=== PATIENT | male | born 1990 | race Caucasian/White ===

== ENCOUNTER 2021-08-11 10:13 | Inpatient (IN) | payer BC, SELFPAY ==
[2021-08-11] VITALS (9 sets, daily range): BP systolic 103–126; BP diastolic 62–82; PULSE 71–97; RESP 16–20; TEMP 36.3–37.1; O2SAT 96–98; BMI 22.8; BMI 21.7
--- NOTE | 2021-08-11 10:19 | EKG12_ITS ---
Test Reason : CP Blood Pressure : / mmHG Vent. Rate : 095 BPM Atrial Rate : 095 BPM P-R Int : 194 ms QRS Dur : 108 ms QT Int : 348 ms P-R-T Axes : 063 077 063 degrees QTc Int : 437 ms Normal sinus rhythm Normal ECG Confirmed by JOSE ELIAS ORNELAS, MICHAEL ([id number]), art editor YENNIFER AVENDANO ([id number]) on 08/15/2021 1:12:23 PM Referred By: RU Confirmed By:MICHAEL MOCTEZUMA MD
--- NOTE | 2021-08-11 10:27 | RAD_ITS ---
We are attempting to reach an attending provider to discuss findings. An addendum with communication details will be sent when the communication is complete. HISTORY: chest pain. TECHNIQUE: XR Chest 2 Views. # of images incl. paperwork: 2. COMPARISON: None. FINDINGS: CARDIOMEDIASTINAL STRUCTURES: Cardiac silhouette and mediastinal contour not enlarged. Mild rightward mediastinal shift. LUNGS: Collapse of the left lung. PLEURA: Large left pneumothorax. Mild depression of the left hemidiaphragm. OSSEOUS STRUCTURES: Unremarkable. RAD/Chest PA and Lateral IMPRESSION: Large left tension pneumothorax. Collapse of the left lung. at 1053 Reported and signed by: Юлия Garcia MD Electronically Signed: Юлия Garcia MD at 10:52 EST ,
--- NOTE | 2021-08-11 10:28 | ED.VIS.CHEST ---
HPI History of Present Illness Chief Complaint: Chest Pain Informant: patient Onset/Context/Timing Onset: Days Activity at onset: gradual Timing: Continuous Quality: Positive for Aching Location: Left Chest Current Severity: Mild Maximum Severity: Mild Worsened By: Movement of Torso Relieved By: Remaining Still Associated Symptoms: Positive for Dyspnea; Negative for Nausea, Vomiting, Diaphoresis, Cough, Fever, Lightheadedness, Acid Reflux and Palpitations Narrative Narrative: 30-year-old male no sniffing past medical history. States that yesterday morning he awoke with left-sided chest discomfort. He describes as an aching on his left lateral chest. The pain did not make him wake up. He says he had some mild shortness of breath with it and with walking. He denies any chest wall trauma. He has never had a DVT or PE. He has had no hemoptysis. No leg pain or swelling. No risk factors for DVT or PE. Has had no recent travel, surgery, immobilization. There is no family history of blood clots. His dad did have an [place] at 50. Patient is never had a pneumothorax. He denies any fever, cough or abdominal pain. Patient was seen in urgent care earlier today. Had a normal EKG and they wanted him to get further evaluation and sent him to the emergency department. Prior Similar Symptoms: No Recent Illness/Hospitalization: No CVD Risk Factors: Positive for Family History 1' </=55; Negative for Hypertension, Diabetes, Hypercholesterolemia and Smoking PE Risk Factors: Negative for Recent Travel/Surgery, Recent Immobilization, Prior DVT or PE, Cancer and OCP + Smoking + >/=35 TAD Risk Factors: Negative for Marfan's Syndrome and Hypertension PFSH PFSH Medical History no medical history no medical history Home Medications NK 08/11/21 [History Last Taken Unknown] Allergy/AdvReac Type Severity Reaction Status Date / Time No Known Allergies Allergy Verified 08/11/21 10:31 Social History Smoking Status: Current every day smoker tobacco type: cigarettes ROS ROS ED ROS Narrative Left chest pain. Dyspnea. Review of Systems ROS Unobtainable: Denies due to encephalopathy Constitutional Constitutional ED: Denies fever(s) Eyes Eyes: Denies none ENT ENT ED: Denies ear pain Cardiovascular Cardiovascular: Reports as per HPI and chest pain; Denies palpitations or racing heartbeat Respiratory/Chest Respiratory/Chest: Reports dyspnea; Denies cough or sputum Gastrointestinal Gastrointestinal: Denies abdominal pain, diarrhea, nausea or vomiting Genitourinary Genitourinary ED: Denies dysuria Musculoskeletal Musculoskeletal: Denies myalgias Integumentary Denies rash Neurologic Neurologic: Denies headache(s) Psychiatric Psychiatric: Denies depression Endocrine Endocrinology: Denies polyuria Hematologic/Lymphatic Hematologic/Lymphatic: Denies easy bruising Allergic/Immunologic Allergic/Immunologic ED: Denies urticaria EXAM Physical Exam Narrative Exam Narrative: 30-year-old male no acute distress. Vital signs are stable and he is afebrile. His pulse ox is 97% on room air is no hypoxia. Pulse 77. Blood pressure 103/65. He is a well-appearing male. H EENT exam unremarkable. Neck nontender. No JVD. No lymphadenopathy. Lungs clear to auscultation bilaterally. Heart regular rhythm rate about 80 no murmur. Chest wall completely nontender. No signs of trauma. No ecchymosis or bruising. No subcu air or crepitance. No reproducible chest wall pain. Abdomen soft nontender normal bowel sounds no peritoneal signs. Patient moving all 4 extremities. Calves are nontender without edema or cords. Radial pulses are equal and symmetrical. Back is nontender. Neurologically the patient is awake and alert. He has no focal motor deficits. Exam is normal. Const Vital Signs: 08/11/21 10:13 08/11/21 10:32 08/11/21 10:35 Temperature 97.3 F L Temperature Source Temporal Pulse Rate 77 Respiratory Rate 18 Respiratory Effort Normal Non-Labored Respiratory Pattern Normal Blood Pressure 103/65 Blood Pressure Mean 77 Pulse Ox 97 Oxygen Delivery Method Room Air Room Air 08/11/21 12:13 Temperature Temperature Source Pulse Rate 97 Respiratory Rate 16 Respiratory Effort Respiratory Pattern Blood Pressure 117/82 H Blood Pressure Mean 93 Pulse Ox 96 Oxygen Delivery Method Room Air Positive well nourished and well developed; Negative for obese, cachectic, contractures or unkempt General Appearance ED: well developed and NAD; Negative for unkempt, cachectic, contractures or pallor Nutritional Appearance: Negative for cachectic or obese HEENT Reports moist mucous membranes normocephalic and atraumatic; Negative for trauma or tenderness Eyes PERRL and EOMs intact bilaterally General Eye ED: Negative for pale conjunctiva or scleral icterus Neck no lymphadenopathy, supple and no JVD General: Negative for tenderness Chest Wall inspection of chest normal and palpation of chest normal Chest: Negative for tenderness Resp normal respiratory effort and clear to auscultation bilaterally Effort and Inspection: respiratory distress Auscultation: Negative for rales, rhonchi or wheezes Cardio regular rate, S1 normal heart sound, S2 normal heart sound and no murmurs Rate: Negative for bradycardia or tachycardic Rhythm: Negative for abnormal rhythm Peripheral Pulses: Negative for pulses 2+ throughout GI normal to inspection, nondistended, normoactive bowel sounds, soft to palpation, non-tender, non-distended and no masses; Negative for hepatosplenomegaly Auscultation: Negative for hyperactive bowel sounds Palpation: Negative for splenomegaly or mass Back/Spine no CVA tenderness Extremity normal to inspection General Extremety ED: Negative for edema, pulses abnormal or tenderness General Extremity: Negative for edema or pulses abnormal Neuro oriented x3 and CN's II-XII intact bilaterally Sensorium / Orientation: awake, alert, oriented to person and oriented to place Motor Exam: strength 5/5 throughout Psych mental status grossly normal Appearance: Negative for unkempt Mood & Affect: Negative for depressed or tearful Skin no rashes or lesions noted and no wounds General Skin Exam: Negative for jaundice or pallor Heart Score History: Slightly/Non-Suspicious ECG: Normal Age: </= 45 years Risk Factors: No Risk Factors Troponin: </= Normal Limit Score: 0 MDM MDM MDM Narrative Medical decision making narrative: 30-year-old male with left-sided atypical, nonreproducible chest pain. He is in very good health. He is in very good shape. He has no risk factors for DVT or PE. There is no family history of clotting disorders. He has no cardiac risk factors himself. His dad did have an [place] at 50 and . Undergo cardiac work-up. Will be given morphine and Zofran for pain. Patient chest x-ray revealed a large left pneumothorax. Patient was given morphine and Zofran for pain. He was removed to room to we discussed treatment options. I also spoke to the general surgeon on-call and structural metal fabricator apprentice. I placed a Heimlich valve on his left lateral chest wall. Patient did well. On post Heimlich valve placement the lung was reexpanded on the left. Patient is doing well with stable vital signs. Resting comfortably. Lab Data Attestation: I reviewed the patient's lab results. Lab results narrative: CBC white count of 12. H&H is 16 and 45. Electrolytes unremarkable gap of 5 normal BUN and creatinine. Troponin 4. D-dimer is elevated 0.64. Chest x-ray shows a large left-sided pneumothorax. Labs: Laboratory Results - last 24 hr 08/11/21 08/11/21 08/11/21 10:30 10:30 10:30 WBC 12.4 H RBC 5.25 Hgb 16.2 Hct 45.9 MCV 87.4 MCH 30.9 MCHC 35.3 RDW Std Deviation 41.9 RDW Coeff of Austyn 13.1 Plt Count 298 MPV 9.4 Immature Gran % (Auto) 0.300 Neut % (Auto) 66.3 Lymph % (Auto) 23.0 Spink % (Auto) 6.6 Eos % (Auto) 3.2 Baso % (Auto) 0.6 Absolute Neuts (auto) 8.2 H Absolute Lymphs (auto) 2.85 Nucleated RBC % 0 D-Dimer Quant (PE/DVT) 0.64 H* Sodium 140 Potassium 3.9 Chloride 109 H Carbon Dioxide 26.0 Anion Gap 5 BUN 8 Creatinine 1.07 Estim Creat Clear Calc 108.09 Est GFR (MDRD) Af Amer 103 Est GFR (MDRD) Non-Af 85 BUN/Creatinine Ratio 7.5 L Glucose 100 Calcium 9.3 Troponin I High Sens 4 Radiography Chest X-Ray - ED: 2 View, Read by ED Physician, Heart, Mediastinum and Bony Structures Diagnostic Testing: Clinical Impression(s) from Imaging Studies Chest X-Ray 08/11/21 10:27 IMPRESSION: Large left tension pneumothorax. Collapse of the left lung. at 1053 Reported and signed by: Юлия Garcia MD Electronically Signed: Юлия Garcia MD at 10:52 EST Reading Location ID and State: [facility] / [place] Tel , Service support , ADDENDUM: 08/11/21 1101 IMPRESSION: Large left tension pneumothorax. Collapse of the left lung. at 1053 Reported and signed by: Юлия Garcia MD N.B. : The above Results were Read Back by Юлия Garcia MD to Mushtaq Hammond;[phone], and understanding confirmed on 08/11/2021 10:54:37 (ET). Electronically Signed: Юлия Garcia MD at 10:52 EST , ADDENDUM: 08/11/21 1110 IMPRESSION: Large left tension pneumothorax. Collapse of the left lung. at 1053 Reported and signed by: Юлия Garcia MD N.B. : The above Results were Read Back by Юлия Garcia MD to , AA, and understanding confirmed on 08/11/2021 11:03:58 (ET). Electronically Signed: Юлия Garcia MD at 10:52 EST , Large left-sided pneumothorax. Normal cardiac silhouette. I did discuss the x-ray with the patient and his significant other at bedside. Rhythm Strip Rhythm Strip: Sinus Rhythm Rate: 95 Ectopy: None EKG Initial EKG: Attestation: I personally reviewed and interpreted this EKG as follows: Interpretation: Sinus Rhythm and No Acute Injury Pattern Comments: Normal sinus rhythm rate of 95 no acute signs of [place] nor ischemia. No S1Q3 or T3. Prior EKG tracings: not available for review Procedures Other Procedures Procedure(s): Left chest Heimlich valve placed for large pneumothorax. Patient was on monitor. Area was cleaned. Locally anesthetized with lidocaine with epinephrine. Made a small incision. Placed the Heimlich valve by percutaneous method. Got good return of air. Hooked up to wall suction. On chest x-ray the lung was reexpanded. Chest tube was fastened down with 4-0 Ethilon x2. Patient tolerated procedure well. Discharge Plan Triage Chief Complaint: Chest Pain ED Provider: Pj Hammond Dx/Rx/DC Orders Clinical Impression: Chest pain, Pneumothorax on left Instructions: Pneumothorax (Collapsed Lung) Prescriptions: No Action NK RF: 0 Primary Care Provider: Care Physician,No Primary Referrals: Care Physician,No Primary [Primary Care Provider] - Disposition Disposition: Acute Care Hospital [facility]
[2021-08-11 10:35] LABS: Absolute Lymphocyte Count 2.85 X10^3/uL (0.83-4.51); Absolute Neutrophil Count 8.2 X10^3/uL (2.0-7.7); Basophil# 0.08 X10^3/uL; Basophil% 0.6 % (0-1); Eosinophils% 3.2 % (0-5); Hematocrit 45.9 % (40-54); Hemoglobin 16.2 g/dL (13.0-16.5); Lymphocyte # 2.85 X10^3/ul (0.83-4.51); Mean Corp Hgb Conc 35.3 g/dL (32-36); Mean Corpuscular Hgb 30.9 pg (27.0-32.0); Mean Corpuscular Volume 87.4 fL (80-94); Mean Platelet Vol. 9.4 fl (6.2-12.0); Monocyte# 0.82 X10^3/uL; Monocyte% 6.6 % (0-10); NRBC Flagged by Analyzer 0 % (0-5); Neutrophil % 66.3 % (47-70); Platelet Count 298 K/mm3 (150-450); RBC Distribution Width CV 13.1 % (11.6-14.6); RBC Distribution Width SD 41.9 fl (35.1-43.9); Red Blood Count 5.25 M/mm3 (4.6-6.2); White Blood Count 12.4 K/mm3 (4.4-11.0)
[2021-08-11 10:46] LABS: D-Dimer Quantitative (DVT/PE) 0.64 FEU/ug/m (0.27-0.49)
[2021-08-11 10:53] LABS: Anion Gap 5 (5-15); BUN 8 mg/dL (7-18); BUN/Creat Ratio 7.5 RATIO (10-20); Calcium,Total 9.3 mg/dL (8.5-10.1); Chloride 109 mmol/L (98-107); Creatinine, Serum 1.07 mg/dL (0.70-1.30); EST Glomerular Filtration Rate 85 mL/min (>60); Est Glom Filt Rate - Afr Amer 103 mL/min (>60); Estimated Creatinine Clearance 108.09 ml/min; Glucose 100 mg/dL (74-106); Potassium 3.9 mmol/L (3.5-5.1); Sodium Level 140 mmol/L (136-145); Troponin-I HS 4 pg/mL (3.0-78.0)
[2021-08-11] MEDS: morphine 8 MG/ML Syringe 6 MG IV (11:42)
[2021-08-11] MEDS: Ondansetron 4 MG/2 ML Vial IV (11:43)
[2021-08-11] MEDS: Lidocaine 1% /Epi 1:100 (20ml) 20 ML Vial 10 ML INFILT (11:43)
--- NOTE | 2021-08-11 12:15 | RAD_ITS ---
HISTORY: post heimlich placed. TECHNIQUE: XR Chest 1 View. EXAM TIME: 2021-08-11 12:05. # of images incl. paperwork: 1. COMPARISON:10:43. FINDINGS: LINES/DEVICES: Small caliber left chest tube placed with chest wall emphysema now seen chest. CARDIOMEDIASTINAL BORDERS: Resolution of tension with decreased mediastinal shift and depression of the left hemidiaphragm. LUNGS: Improved expansion and aeration of the left lung. PLEURA: Residual left pneumothorax measures approximately 2 cm at the apex. RAD/Chest 1 View (Portable) IMPRESSION: Mild residual left pneumothorax post chest tube placement. Improved expansion of the left lung. at 1306 Reported and signed by: Юлия Garcia MD Electronically Signed: Юиля Garcia MD at 13:04 EST ,
--- NOTE | 2021-08-11 12:26 | HP.PCM.HOS_ITS ---
[facility] - General General Date of Admission: 08/11/21 Date of Service: 08/11/21 Chief Complaint: Sudden onset of severe chest pain since the morning of 08/10/2021 HPI Narrative C[place]AND OLIVEROS, is a 30 M with no past medical history but chronic smoker since teenage came to ER with sudden onset of severe chest pain on left side after he woke up on 08/04 6 AM. Patient went to urgent care today where he was sent to ER. Patient states he had severe chest pain on left side of chest and he thought he hurt himself during sleep. It is 8-10/10 intensity, localized sharp in quality without cough or fever. He had mild shortness of breath on walking. Denies bodybuilding or heavy lifting. He smokes 1-1/2 to 2 packs/day although he started with 1 pack in early teenage. He has cut down to less than a pack now. Denies chronic lung disease including COPD, asthma, chronic exposure of dust or occupational risk. Denies chronic cardiac disease. His father 6 to 8 years ago from massive [place]. He was in 50s. Chest x-ray done in the ER shows left large pneumothorax with collapse of left lung. Mild rightward tracheal and mediastinal shift. [facility] Medical History no medical history Home Medications NK 08/11/21 [History Last Taken Unknown] Allergy/AdvReac Type Severity Reaction Status Date / Time No Known Allergies Allergy Verified 08/11/21 10:31 Social History Smoking Status: Current every day smoker tobacco type: cigarettes ROS ROS Narrative Constitutional: Mild dyspnea on exertion. No fever. HEENT: Reports systems reviewed and no addt'l complaints, except as documented Respiratory/Chest: As mentioned in HPI Gastrointestinal: Denies coffee ground emesis, hematemesis or vomiting Genitourinary: Denies burning urination or new urinary tract symptoms Musculoskeletal: Denies joint pain and limited range of motion Neurologic: Denies seizure-like activity. No neurological disease. skin: No ulcer. No rash Endocrinology: No diabetes or hypertension. Reports systems reviewed and no addt'l complaints, except as documented Hematologic/Lymphatic: Reports systems reviewed and no addt'l complaints, except as documented Rest 14 ROS are negative except as mentioned in HPI Vital Signs Vital Signs Vital Signs: 08/11/21 10:13 08/11/21 10:32 08/11/21 10:35 Temperature 97.3 F L Temperature Source Temporal Pulse Rate 77 Respiratory Rate 18 Respiratory Effort Normal Non-Labored Respiratory Pattern Normal Blood Pressure 103/65 Blood Pressure Mean 77 Pulse Ox 97 Oxygen Delivery Method Room Air Room Air 08/11/21 12:13 Temperature Temperature Source Pulse Rate 97 Respiratory Rate 16 Respiratory Effort Respiratory Pattern Blood Pressure 117/82 H Blood Pressure Mean 93 Pulse Ox 96 Oxygen Delivery Method Room Air Weight Weight: 168 lb 6.931 oz Body Mass Index (BMI) 22.8 Physical Exam Narrative General: Alert, Oriented x3, Cooperative HEENT: Atraumatic, PERRLA, EOMI, Normocephalic Oral: No Gingival or Mucosal Lesions/ Ulcerations Neck: Supple, No JVD, Negative Carotid Bruits Lungs: Small caliber left left-sided chest tube. Air entry diminished on left upper chest. No tenderness. No crepitation/rhonchi Cardiovascular: Regular rate, Regular Rhythm, Normal S1, Normal S2, No murmurs Abdomen: Bowel Sounds Present, Soft, Non Tender, Non-Distended : No renal angle tenderness. No suprapubic tenderness. Extremities: No edema, Capillary Refill Less than 3 Seconds Skin: No rashes, No breakdown Musculoskeletal: No Tenderness to Palpation of Joints or Extremities Neurological: Cranial nerves II-XII grossly intact, DTR 2+/4 and Symmetrical, Neuro grossly intact Psych/Mental Status: Normal Affect, Appropriate. Results Lab / Micro Data Result Diagrams: 08/11/21 10:30 08/11/21 10:30 Labs: Laboratory Results - last 24 hr 08/11/21 10:30: WBC 12.4 H, RBC 5.25, Hgb 16.2, Hct 45.9, MCV 87.4, MCH 30.9, MCHC 35.3, RDW Std Deviation 41.9, RDW Coeff of Austyn 13.1, Plt Count 298, MPV 9.4, Immature Gran % (Auto) 0.300, Neut % (Auto) 66.3, Lymph % (Auto) 23.0, [place] % (Auto) 6.6, Eos % (Auto) 3.2, Baso % (Auto) 0.6, Absolute Neuts (auto) 8.2 H, Absolute Lymphs (auto) 2.85, Nucleated RBC % 0 08/11/21 10:30: Sodium 140, Potassium 3.9, Chloride 109 H, Carbon Dioxide 26.0, Anion Gap 5, BUN 8, Creatinine 1.07, Estim Creat Clear Calc 108.09, Est GFR (MDRD) Af Amer 103, Est GFR (MDRD) Non-Af 85, BUN/Creatinine Ratio 7.5 L, Glucose 100, Calcium 9.3, Troponin I High Sens 4 08/11/21 10:30: D-Dimer Quant (PE/DVT) 0.64 H* Rhythm Strip Rhythm Strip: Sinus Rhythm Rate: 95 Ectopy: None Radiology Impression Chest X-Ray 08/11/21 10:27 IMPRESSION: Large left tension pneumothorax. Collapse of the left lung. at 1053 Reported and signed by: Юлия Garcia MD Electronically Signed: Юлия Garcia MD at 10:52 EST Reading Location ID and State: [facility] / [place] Tel , Service support , ADDENDUM: 08/11/21 1101 IMPRESSION: Large left tension pneumothorax. Collapse of the left lung. ADDENDUM: 08/11/21 1110 IMPRESSION: Large left tension pneumothorax. Collapse of the left lung. Assessment & Plan Assessment/Plan (1) Pneumothorax on left: PLAN: 1. Large left primary spontaneous tension pneumothorax most probably due to smoking: Patient is being admitted in PCU. Patient had small caliber chest tube, in Milic valve on left lateral chest wall. Postprocedure chest x-ray individually reviewed and shows expansion of left lung except residual apical pneumothorax. Chest tube connected to constant medium pressure wall suction. Systems Design Engineer and surgeon Dr. Robert notified by ER physician. Repeat chest x- ray tomorrow morning 2. Chronic cigarette smoker: About 20-25 pack years of smoking, 1.5 to 2 packs cigarettes. Patient is cutting back on cigarettes. Advised quitting smoking altogether. Nicotine patch ordered. VTE prophylaxis: Low risk. Early ambulation encouraged. Full code verified. Charges/Coding Visit Charges Inpatient E&M: 64246 Init Hosp L3
[2021-08-11 12:41] LABS: Magnesium 2.1 mg/dL (1.6-2.6)
[2021-08-11] MEDS: oxyCODONE 5 MG Tablet PO ×2 (14:29→21:37)
[2021-08-11] MEDS: Acetaminophen 325 MG Tablet 650 MG PO ×2 (14:30→21:37)
[2021-08-11] MEDS: Lactated Ringers 1,000 ML 75 ML IV (14:31)
[2021-08-12] VITALS (10 sets, daily range): BP systolic 102–122; BP diastolic 57–74; PULSE 67–86; RESP 16–18; TEMP 36.6–37.4; O2SAT 97–98
[2021-08-12] MEDS: Acetaminophen 325 MG Tablet 650 MG PO ×3 (04:02→21:29)
[2021-08-12] MEDS: oxyCODONE 5 MG Tablet PO (04:02)
--- NOTE | 2021-08-12 05:55 | RAD_ITS ---
STUDY: X-RAY CHEST REASON FOR EXAM: Male, 30 years old. left pneumothorax TECHNIQUE: AP COMPARISON: Yesterday FINDINGS: Small caliber left chest tube stable. Left apical pneumothorax with pleural separation measuring 18.7 mm is unchanged. Normal size heart. Normal mediastinum and dennis. Normal visualized pulmonary arteries. Normal visualized aortic arch and descending thoracic aorta. Small amount of subcutaneous emphysema of the lateral left chest wall. Normal visualized ribs, clavicles, and shoulders. There is no demonstrated abnormality of the visualized soft tissue structures of the upper abdomen. RAD/Chest 1 View (Portable) IMPRESSION: Left apical pneumothorax stable with left chest tube. Electronically Signed: Ilan Platt MD ([place]oks) at 7:45 EST ,
[2021-08-12 06:34] LABS: Absolute Lymphocyte Count 3.07 X10^3/uL (0.83-4.51); Absolute Neutrophil Count 5.4 X10^3/uL (2.0-7.7); Basophil# 0.09 X10^3/uL; Basophil% 0.9 % (0-1); Eosinophil# 0.59 X10^3/uL; Hematocrit 42.8 % (40-54); Hemoglobin 14.9 g/dL (13.0-16.5); Lymphocyte # 3.07 X10^3/ul (0.83-4.51); Lymphocyte % 31.2 % (19-41); Mean Corp Hgb Conc 34.8 g/dL (32-36); Mean Corpuscular Hgb 30.2 pg (27.0-32.0); Mean Corpuscular Volume 86.8 fL (80-94); Mean Platelet Vol. 9.7 fl (6.2-12.0); Monocyte% 7.1 % (0-10); NRBC Flagged by Analyzer 0 % (0-5); Neutrophil # 5.35 X10^3/uL (2.7-7.7); Neutrophil % 54.5 % (47-70); Platelet Count 275 K/mm3 (150-450); RBC Distribution Width CV 13.2 % (11.6-14.6); RBC Distribution Width SD 42.2 fl (35.1-43.9); Red Blood Count 4.93 M/mm3 (4.6-6.2); White Blood Count 9.8 K/mm3 (4.4-11.0)
[2021-08-12 07:04] LABS: Anion Gap 3 (5-15); BUN 10 mg/dL (7-18); BUN/Creat Ratio 10.1 RATIO (10-20); Calcium,Total 8.7 mg/dL (8.5-10.1); Chloride 108 mmol/L (98-107); Creatinine, Serum 0.99 mg/dL (0.70-1.30); EST Glomerular Filtration Rate 93 mL/min (>60); Est Glom Filt Rate - Afr Amer 113 mL/min (>60); Estimated Creatinine Clearance 110.98 ml/min; Glucose 102 mg/dL (74-106); Potassium 4.4 mmol/L (3.5-5.1); Sodium Level 135 mmol/L (136-145)
--- NOTE | 2021-08-12 08:56 | CON.PCM.CC_ITS ---
Assessment & Plan Assessment/Plan (1) Pneumothorax on left: PLAN: RECOMMENDATIONS: 1. Continue pain medications as necessary 2. No indication for bronchodilators at this time 3. Defer to surgery on chest tube management 4. Anticipate CT of the chest as an outpatient with PFTs 5. Do NOT obtain an alpha-1 antitrypsin as this can be obtained as an outpatient for free 6. Consider hyperoxygenation given apical pneumothorax IMPRESSIONS: 1. Left spontaneous pneumothorax Review of chest x-ray does not suggest tension in my opinion. Patient does have complete atelectasis of the left lung on presentation. Patient does continue to have an apical component, but this may be secondary to the basal location of the chest tube. Defer to surgery on whether this needs to be replaced. Could potentially clamp chest tube and see if it recurs. Could treat patient with hyperoxic therapy to help with apical resolution as there does not appear to be a leak of the chest tube. Histiocytosis X, early COPD or paraseptal emphysema would be considerations. Patient does not appear to have a marfanoid appearance, but this would also be a concern. Anticipate a CT of the chest as an outpatient, ideally with lung is fully expanded to evaluate for subpleural findings. Continue pain control to limit atelectasis. HPI Consult Data Date of Consult: 08/12/21 HPI Narrative HPI Narrative: CLEVELAND OLIVEROS is a 30 M, with no reported past medical history, who presents to [facility] on 08/11/2021 secondary to a 24-hour history of persistent left-sided discomfort and shortness of breath. Patient reportedly had awakened from sleep feeling more short of breath. Patient waited for approximately a day to see if it had improved and when he failed to improve presented to the ER for evaluation. Patient is not reporting any productive cough, chest trauma or hemoptysis. 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 On presentation to the ER, patient was afebrile, normotensive and saturating 97% on room air. Laboratory work-up showed a white blood cell count of 12.4, hemoglobin of 16.2 and a platelet count of 298. D-dimer was slightly elevated at 0.64 and chemistries were unremarkable. A chest x-ray showed a significant left pneumothorax. Patient subsequently had a chest tube placed by the ER physician with improvement. Heimlich valve was used. Patient was admitted to the floor for further evaluation. Since being admitted, patient feels subjectively improved from a dyspnea standpoint. Patient does state that he has a sharp stabbing sensation into the left armpit that has been consistent since the chest tube was placed. Patient does not believe that this is worsened in any way. Patient is not reporting any significant recent URI symptoms such as sinus congestion, fever, chills, nausea or vomiting. Patient has not had any unintentional weight loss. Patient is not reporting any significant trauma recently. Patient has no history of previous pneumothorax. Patient is not aware of any family members with similar type presentations. Patient states I did not even know this could happen. Patient does report that he smoked from his early teens, but has never been seen by pulmonary or had a pulmonary function test previously. Review of systems otherwise negative from a constitutional, HEENT, respiratory, cardiovascular, GI, genitourinary, musculoskeletal, skin, neurologic, psychiatric and hematologic system unless stated above. PFSH Medical History no medical history Home Medications NK 08/11/21 [History Last Taken Unknown] Allergy/AdvReac Type Severity Reaction Status Date / Time No Known Allergies Allergy Verified 08/11/21 10:31 Social History Smoking Status: Current every day smoker tobacco type: cigarettes ROS ROS Narrative See HPI Physical Exam Const alert, oriented x3 and no apparent distress General Appearance: cooperative and well developed HEENT normocephalic, head/scalp atraumatic and moist oral mucous membranes Eyes PERRL and EOMs intact bilaterally Neck full ROM and no lymphadenopathy Chest Chest Narrative: Personal review of chest x-ray shows residual left apical pneumothorax (less than 20%) Chest: chest tube left (No leak appreciated) Resp normal respiratory effort and no use of accessory muscles Effort and Inspection: able to speak in complete sentences Auscultation: clear to auscultation bilaterally; Negative for rales, rhonchi or wheezes Percussion: Negative for dullness Cardio regular rate, regular rhythm, S1 normal heart sound, S2 normal heart sound, no murmurs, no rub and no gallops GI normal to inspection, nondistended, normoactive bowel sounds no CVA tenderness Extremity no clubbing, cyanosis or edema Skin no rashes or lesions noted Neuro oriented x3, CN's II-XII intact bilaterally, moves all extremities and no focal motor deficits Psych cooperative and affect normal Lab / Micro Data Result Diagrams: 08/12/21 05:58 08/12/21 05:58 Labs: Laboratory Results - last 24 hr 08/11/21 10:30: WBC 12.4 H, RBC 5.25, Hgb 16.2, Hct 45.9, MCV 87.4, MCH 30.9, MCHC 35.3, RDW Std Deviation 41.9, RDW Coeff of Austyn 13.1, Plt Count 298, MPV 9.4, Immature Gran % (Auto) 0.300, Neut % (Auto) 66.3, Lymph % (Auto) 23.0, Jackson % (Auto) 6.6, Eos % (Auto) 3.2, Baso % (Auto) 0.6, Absolute Neuts (auto) 8.2 H, Absolute Lymphs (auto) 2.85, Nucleated RBC % 0 08/11/21 10:30: Sodium 140, Potassium 3.9, Chloride 109 H, Carbon Dioxide 26.0, Anion Gap 5, BUN 8, Creatinine 1.07, Estim Creat Clear Calc 108.09, Est GFR (MDRD) Af Amer 103, Est GFR (MDRD) Non-Af 85, BUN/Creatinine Ratio 7.5 L, Glucose 100, Calcium 9.3, Troponin I High Sens 4 08/11/21 10:30: D-Dimer Quant (PE/DVT) 0.64 H* 08/11/21 10:30: Magnesium 2.1 08/12/21 05:58: WBC 9.8, RBC 4.93, Hgb 14.9, Hct 42.8, MCV 86.8, MCH 30.2, MCHC 34.8, RDW Std Deviation 42.2, RDW Coeff of Austyn 13.2, Plt Count 275, MPV 9.7, Immature Gran % (Auto) 0.300, Neut % (Auto) 54.5, Lymph % (Auto) 31.2, Jackson % (Auto) 7.1, Eos % (Auto) 6.0 H, Baso % (Auto) 0.9, Absolute Neuts (auto) 5.4, Absolute Lymphs (auto) 3.07, Nucleated RBC % 0 08/12/21 05:58: Sodium 135 L, Potassium 4.4, Chloride 108 H, Carbon Dioxide 24.0, Anion Gap 3 L, BUN 10, Creatinine 0.99, Estim Creat Clear Calc 110.98, Est GFR (MDRD) Af Amer 113, Est GFR (MDRD) Non-Af 93, BUN/Creatinine Ratio 10.1, Glucose 102, Calcium 8.7 Rhythm Strip Rhythm Strip: Sinus Rhythm Rate: 95 Ectopy: None Radiology Impression Chest X-Ray 08/11/21 10:27 IMPRESSION: Large left tension pneumothorax. Collapse of the left lung. at 1053 Reported and signed by: Юлия Garcia MD Electronically Signed: Юлия Garcia MD at 10:52 EST Reading Location ID and State: [facility] / [place] Tel , Service support , ADDENDUM: 08/11/21 1101 IMPRESSION: Large left tension pneumothorax. Collapse of the left lung. at 1053 Reported and signed by: Юлия Garcia MD N.B. : The above Results were Read Back by Юлия Garcia MD to Mushtaq Hammond;[phone], and understanding confirmed on 08/11/2021 10:54:37 (ET). Electronically Signed: Юлия Garcia MD at 10:52 EST , ADDENDUM: 08/11/21 1110 IMPRESSION: Large left tension pneumothorax. Collapse of the left lung. at 1053 Reported and signed by: Юлия Garcia MD N.B. : The above Results were Read Back by Юлия N. Jose, MD to , AA, and understanding confirmed on 08/11/2021 11:03:58 (ET). Electronically Signed: Юлия Garcia MD at 10:52 EST , Chest X-Ray 08/11/21 12:15 IMPRESSION: Mild residual left pneumothorax post chest tube placement. Improved expansion of the left lung. at 1306 Reported and signed by: Юлия Garcia MD Electronically Signed: Юлия Garcia MD at 13:04 EST , Chest X-Ray 08/12/21 05:55 IMPRESSION: Left apical pneumothorax stable with left chest tube. Electronically Signed: Ilan Platt MD ([place]) at 7:45 EST , Charges/Coding Visit Charges Inpatient E&M: 47561 Init Hosp L2
--- NOTE | 2021-08-12 11:15 | CASEMGMT ---
CLARIBEL ESCOBAR assessment: Face to Face with patient for initial transition planning/care coordination assessment. CLARIBEL ESCOBAR introduced self and role at [facility], pt voices understanding and consents to assessment. Pt is sitting up in bed in no distress on room air. Pt is A/Ox4 and answers all questions appropriately. Pt's is at bedside during assessment. Care providers, pharmacy, and demographics verified. Presentation: Pt c/o CP since yesterday, sent from urgent care Admitting dx: Atypical CP, spontaneous pneumothorax PCP: Pt does not have PCP and pt provided with list of local PCP's Specialists: None Preferred Pharmacy: [facility] Insurance: [employer] Prescription Benefit: [employer] Living Will/HPOA: Pt does not have LW/HPOA but would like AD info and info provided at this time. LNOK: Rosalia Flanagan, ; Regina Flanagan, mother Living Arrangements: Pt lives with in 1 story home and states no concerns at home. Pt is independent with ADL's. Transportation: Pt drives self and states no transportation concerns. DME/HHC: Pt states no current DME or need for any further DME. Pt states no hx of HHC or SNF. Pt states no concerns with going home at time of discharge. 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 Pt states is trying to quit smoking and is down to 1/2 pack cigarettes daily. Pt states does not drink ETOH. Pt voices no further concerns/needs. CM to follow for any further discharge planning/needs. Advised pt to ask for CM if any further questions/concerns/needs arise, voices understanding. Pt Goal: Home [place] CLARIBEL ESCOBAR
--- NOTE | 2021-08-12 15:27 | PN.HOSP_ITS ---
Subjective Subjective Patient reports that shortness of breath has resolved. The only problem he is having at this time is pain at the location of the chest tube. Objective Data Objective Data Vital Signs: Vital Signs Temp Pulse Resp BP Pulse Ox 97.9 F 67 18 122/65 H 98 08/12/21 10:00 08/12/21 10:00 08/12/21 10:00 08/12/21 10:00 08/12/21 10:00 Oxygen Delivery Method Room Air Weight: 72.575 kg Body Mass Index (BMI) 21.7 Intake & Output: Intake and Output for Last 24 Hours 08/10/21 08/11/21 08/12/21 23:59 23:59 23:59 Intake Total 1030 / 1030 1760 / 1760 Balance 1030 / 1030 1760 / 1760 Lab / Micro Data Result Diagrams: 08/12/21 05:58 08/12/21 05:58 Labs: Laboratory Results - last 24 hr 08/12/21 05:58: WBC 9.8, RBC 4.93, Hgb 14.9, Hct 42.8, MCV 86.8, MCH 30.2, MCHC 34.8, RDW Std Deviation 42.2, RDW Coeff of Austyn 13.2, Plt Count 275, MPV 9.7, Immature Gran % (Auto) 0.300, Neut % (Auto) 54.5, Lymph % (Auto) 31.2, [place] % (Auto) 7.1, Eos % (Auto) 6.0 H, Baso % (Auto) 0.9, Absolute Neuts (auto) 5.4, Absolute Lymphs (auto) 3.07, Nucleated RBC % 0 08/12/21 05:58: Sodium 135 L, Potassium 4.4, Chloride 108 H, Carbon Dioxide 24.0, Anion Gap 3 L, BUN 10, Creatinine 0.99, Estim Creat Clear Calc 110.98, Est GFR (MDRD) Af Amer 113, Est GFR (MDRD) Non-Af 93, BUN/Creatinine Ratio 10.1, Glucose 102, Calcium 8.7 Radiography Diagnostic Testing: Radiology Impression Chest X-Ray 08/12/21 05:55 IMPRESSION: Left apical pneumothorax stable with left chest tube. Electronically Signed: Ilan Platt MD ([place]) at 7:45 EST Reading Location ID and State: [address] [place] [address] , Service support , Rhythm Strip Rhythm Strip: Sinus Rhythm Rate: 95 Ectopy: None Physical Exam Const alert, oriented x3, no apparent distress, average body habitus and healthy appearing Exam Limitations: no limitations HEENT head/scalp atraumatic and moist oral mucous membranes Head and Scalp: normocephalic Resp normal respiratory effort, no retractions, no use of accessory muscles and clear to auscultation bilaterally Resp Narrative: Good breath sounds bilaterally Auscultation: Negative for crackles, rales, rhonchi or wheezes Cardio regular rate, regular rhythm, S1 normal heart sound, S2 normal heart sound, no murmurs, no rub, no gallops, no clicks and no JVD GI normal to inspection, nondistended, normoactive bowel sounds, soft to palpation, non-tender and non-distended Extremity no clubbing, cyanosis or edema Peripheral Pulses: Yes pulses 2+ throughout Neuro oriented x3 Sensorium / Orientation: awake and alert Psych affect normal Assessment & Plan Assessment/Plan (1) Pneumothorax on left: (2) Tobacco abuse: PLAN: Acute spontaneous left pneumothorax -Chest x-ray from this morning reviewed and patient has a small apical pneumothorax -Currently asymptomatic other than pain from chest tube placement -We will trial waterseal and check chest x-ray 2 hours after chest tube has been placed to waterseal as long as patient remains clinically stable -No air leak at this time however it appears that the pigtail catheter is somewhat suboptimally placed -Appreciate pulmonary input and awaiting general surgery input -Alpha-1 antitrypsin will be obtained as an outpatient -Plan is for CT and PFTs with outpatient follow-up to pulmonary -Recommend pulmonary follow-up at discharge Tobacco abuse -Recommend cessation -Continue patch available DVT prophylaxis -Risk is low -Early ambulation CODE STATUS -Full code Charges/Coding Visit Charges Inpatient E&M: 12022 Subs Hosp L2
--- NOTE | 2021-08-12 18:15 | RAD_ITS ---
STUDY: X-RAY CHEST REASON FOR EXAM: Male, 30 years old. Chest Tube TECHNIQUE: PA and lateral views of the chest. COMPARISON: Earlier today FINDINGS: EKG leads overlie the chest. Stable appearance of a small caliber left-sided chest tube and subcutaneous emphysema over the left chest wall. Lungs are expanded with stable left apical pneumothorax, no mediastinal shift. Normal size heart. Normal mediastinum and dennis. Normal visualized pulmonary arteries. Normal visualized aortic arch and descending thoracic aorta. Normal visualized thoracic spine. Normal visualized ribs, clavicles, and shoulders. There is no demonstrated abnormality of the visualized soft tissue structures of the upper abdomen. RAD/Chest PA and Lateral IMPRESSION: No interval change, persistent left apical pneumothorax without mediastinal shift Stable appearance of a small caliber left-sided chest tube. Stable left-sided subcutaneous emphysema Electronically Signed: Sea Lemus MD at 18:31 EST ,
[2021-08-13 03:00] VITALS: PULSE 61
[2021-08-13 04:54] VITALS: BP 123/66; PULSE 70; RESP 18; TEMP 36.4; O2SAT 98
[2021-08-13 07:18] VITALS: PULSE 62
[2021-08-13 08:00] VITALS: O2SAT 99
--- NOTE | 2021-08-13 08:08 | RAD_ITS ---
STUDY: X-RAY CHEST REASON FOR EXAM: Male, 30 years old. Pneumothorax TECHNIQUE: PA and lateral views of the chest. COMPARISON: Comparison is made with prior study dated 08/12/2021. FINDINGS: EKG electrodes are seen. A left-sided small caliber chest tube is seen overlying the left mid thorax. Residual small left apical pneumothorax. There is no demonstrated pleural abnormality. Normal size heart. Normal mediastinum and dennis. Normal visualized pulmonary arteries. Normal visualized aortic arch and descending thoracic aorta. Normal visualized thoracic spine. Normal visualized ribs, clavicles, and shoulders. There is no demonstrated abnormality of the visualized soft tissue structures of the upper abdomen. RAD/Chest PA and Lateral IMPRESSION: Stable small left apical pneumothorax. Electronically Signed: Shayne Martinez MD at 12:55 EST ,
[2021-08-13 08:23] VITALS: BP 119/86; PULSE 73; RESP 16; TEMP 36.6; O2SAT 99
--- NOTE | 2021-08-13 08:33 | PCM.PN.INT ---
Assessment & Plan Assessment/Plan (1) Pneumothorax on left: PLAN: RECOMMENDATIONS: 1. Continue pain medications as necessary 2. No indication for bronchodilators at this time 3. Will order chest x-ray. If stable, okay to discontinue chest tube 4. Anticipate CT of the chest as an outpatient with PFTs 5. Do NOT obtain an alpha-1 antitrypsin as this can be obtained as an outpatient for free 6. Consider hyperoxygenation given apical pneumothorax IMPRESSIONS: 1. Left spontaneous pneumothorax Review of chest x-ray does not suggest tension in my opinion. Patient does have complete atelectasis of the left lung on presentation. Patient does continue to have an apical component, but this may be secondary to the basal location of the chest tube. Patient has been on waterseal overnight with no worsening in symptoms. We will repeat chest x-ray this morning. Could treat patient with hyperoxic therapy to help with apical resolution as there does not appear to be a leak of the chest tube. Histiocytosis X, early COPD or paraseptal emphysema would be considerations. Patient does not appear to have a marfanoid appearance, but this would also be a concern. Anticipate a CT of the chest as an outpatient, ideally with lung is fully expanded to evaluate for subpleural findings. Continue pain control to limit atelectasis. Addendum 12:23 PM: Chest x-ray showed stable lung exam after waterseal. Decision was made to discontinue chest tube. Patient was informed of the process and agreed with moving forward. The area of interest was exposed and interrupted silk sutures were removed using a suture removal kit. Chest tube was removed and replaced with Vaseline gauze and an appropriate dressing. Patient tolerated the procedure well with no change in heart rate or oxygenation. No increased dyspnea was noted. Chest x-ray will be ordered for an hour. If patient is able to tolerate removal of chest tube, anticipate patient can be discharged from pulmonary perspective. Patient should follow-up in 2 weeks in our office with nurse practitioner. Patient will need a CT scan of the chest at that time along with a complete PFT in 3 to 6 months and follow-up with myself. Subjective Subjective Patient states that surgery did not evaluate him yesterday. Patient was placed to waterseal yesterday by hospitalist. Patient states he feels subjectively improved compared to yesterday. Patient states his pain is slightly improved compared to yesterday. Patient is not reporting dyspnea with exertion. Patient has been tolerating room air. Objective Data Objective Data Vital Signs: Vital Signs Temp Pulse Resp BP Pulse Ox 36.6 C 73 16 119/86 H 99 08/13/21 08:23 08/13/21 08:23 08/13/21 08:23 08/13/21 08:23 08/13/21 08:23 Oxygen Delivery Method Room Air Weight: 72.575 kg Body Mass Index (BMI) 21.7 Intake & Output: Intake and Output for Last 24 Hours 08/11/21 08/12/21 08/13/21 23:59 23:59 23:59 Intake Total 1030 / 1030 2940 / 2940 200 / 200 Balance 1030 / 1030 2940 / 2940 200 / 200 Lab / Micro Data Result Diagrams: 08/12/21 05:58 08/12/21 05:58 Radiography Diagnostic Testing: Radiology Impression Chest X-Ray 08/12/21 18:15 IMPRESSION: No interval change, persistent left apical pneumothorax without mediastinal shift Stable appearance of a small caliber left-sided chest tube. Stable left-sided subcutaneous emphysema Electronically Signed: Sea Lemus MD at 18:31 EST Reading Location ID and State: [facility] , Service support , Rhythm Strip Rhythm Strip: Sinus Rhythm Rate: 95 Ectopy: None Physical Exam Const alert, oriented x3 and no apparent distress General Appearance: cooperative and well developed HEENT normocephalic, head/scalp atraumatic and moist oral mucous membranes Eyes PERRL and EOMs intact bilaterally Neck full ROM and no lymphadenopathy Chest Chest: chest tube left (No leak appreciated) Resp normal respiratory effort and no use of accessory muscles Effort and Inspection: able to speak in complete sentences Auscultation: clear to auscultation bilaterally; Negative for rales, rhonchi or wheezes Percussion: Negative for dullness Cardio regular rate, regular rhythm, S1 normal heart sound, S2 normal heart sound, no murmurs, no rub and no gallops GI normal to inspection, nondistended, normoactive bowel sounds no CVA tenderness Extremity no clubbing, cyanosis or edema Skin no rashes or lesions noted Neuro oriented x3, CN's II-XII intact bilaterally, moves all extremities and no focal motor deficits Psych cooperative and affect normal Charges/Coding Visit Charges Inpatient E&M: 72996 Subs Hosp L2
--- NOTE | 2021-08-13 11:15 | PCM.DC.SUM ---
Providers Date of Admission: 08/11/21 Date of Discharge: 08/13/21 Primary Care Physician: Lindy Primary Care Phys Consultations 08/11/21 13:33 Consult: Commercial Collections Driver / Pulmonary Medicine Routine Consulting Provider: [facility] Reason for Consult: Left sponataneous pneumothorax EMERGENT Consult: No MD Notified: Yes Date Notified: 08/11/21 Time Notified: 12:25 Method of Notification: Verbal Comments:: ED physician informed Dr Gillis Reason For Visit: ATYYPICAL CHEST PAIN Diagnosis Discharge Diagnosis (1) Pneumothorax on left: Status: Acute Code(s): J93.9 - Pneumothorax, unspecified Medications at Discharge Home Medications NK 08/11/21 Hospital Course Procedures - (Pigtail chest tube placement) Summary of Care Provided Minutes Spent on Discharge: 29 Hospital Course: Mr. Flanagan is a 30-year-old white male who presented to the emergency department at [facility] on 08/11/2021 after presenting to an urgent care earlier that day for severe left-sided chest pain and shortness of breath. The patient reported on admission his symptoms started on the morning of 08/10/2021 and he felt that maybe he hurt himself during his sleep. He rated his pain at 8 out of 10 and reported it was sharp in quality and denied any cough or fever. His shortness of breath was most noticeable with exertion. He had a long history of tobacco abuse and smokes 1-1/2 to 2 packs of cigarettes daily but started in his early teens. He did indicate on admission that he is cutting down on tobacco and was smoking less than a half a pack prior to admission. He has no personal or family history of lung issues but does state his father in his 50s from a massive heart attack. Chest x-ray was done the emergency department and showed a left large complete pneumothorax with some mild mediastinal and tracheal shift to the right. In the emergency department a pigtail chest tube was placed and repeat chest x-ray showed resolution of his pneumothorax. He was admitted to the medical floor and his chest tube was maintained to waterseal. On the day following admission his repeat chest x-ray showed a small apical pneumothorax and he maintained stability throughout the day. Given his stability the chest tube was placed to waterseal and a repeat chest x-ray was done 2 hours after this which showed stability in his pneumothorax with small residual apical pneumo. His chest tube was maintained to waterseal through the night and a repeat chest x-ray in the a.m shows stability with a small residual apical pneumothorax and therefore his pigtail chest tube was pulled by pulmonary medicine on 08/13/2021. A repeat chest x-ray 1 hour following showed stability and therefore the patient was discharged home in stable condition. He was on room air. He will be followed up as an outpatient with pulmonary for more extensive testing with regards to his spontaneous pneumothorax. He is cleared to return to work on 08/14/2021. He was advised to take nonsteroidal anti-inflammatory medication for any pain he may experience related to the chest tube. Discharge diagnoses: Acute left spontaneous pneumothorax Tobacco abuse Physical Exam Const alert, oriented x3, no apparent distress, average body habitus and healthy appearing General Appearance: cooperative, comfortable, well kempt and well developed Exam Limitations: no limitations Nutritional Appearance: thin HEENT normocephalic, head/scalp atraumatic, hearing grossly normal bilaterally and moist oral mucous membranes Resp normal respiratory effort, no retractions, no use of accessory muscles and clear to auscultation bilaterally Resp Narrative: Good breath sounds bilaterally Auscultation: Negative for crackles, rales, rhonchi or wheezes Cardio regular rate, regular rhythm, S1 normal heart sound, S2 normal heart sound, no murmurs, no rub, no gallops, no clicks and no JVD GI normal to inspection, nondistended, normoactive bowel sounds, soft to palpation, non-tender and non-distended Extremity no clubbing, cyanosis or edema Extremity Narrative: 2+ pedal pulses Neuro oriented x3, CN's II-XII intact bilaterally, moves all extremities and no focal motor deficits Sensorium / Orientation: awake and alert Psych affect normal Weight / BMI Weight Weight: 72.575 kg Body Mass Index (BMI) 21.7 ABG / Lab / Microbiology Data Result Diagrams: 08/12/21 05:58 08/12/21 05:58 Radiography Diagnostic Testing: Radiology Impression Chest X-Ray 08/12/21 18:15 IMPRESSION: No interval change, persistent left apical pneumothorax without mediastinal shift Stable appearance of a small caliber left-sided chest tube. Stable left-sided subcutaneous emphysema Electronically Signed: Sea Lemus MD at 18:31 EST , D/C Instructions Discharge Diet: No restrictions Discharge Activity: Return to Normal Activity Meaningful Use Info Meaningful Use Diagnoses (Choose all that apply): None applicable Discharge Plan Admission Admit Date/Time: 08/11/21 12:20 Primary Reason for Your Visit: Shortness of Breath Attending Provider: Mliey Gonzalez Primary Care Provider: Care Physician,No Primary Consulting Providers: Braydon Valencia ; Des Gillis ; Candis Spivey COMMODITY SUPERVISOR Instructions Forms: Work / School Excuse Patient Instructions: Pneumothorax (Collapsed Lung) Additional Instructions / Restrictions: 1. Okay to take as needed ibuprofen for pain related to chest tube after removal 2. Please follow-up with pulmonary medicine as noted below Discharge Orders/Prescriptions Prescriptions: No Action NK RF: 0 Referrals / Follow Up: Braydon Valencia MD [STAFF PHYSICIAN] - Within 2 Weeks (Pneumothorax-spontaneos) Care Physician,No Primary [Primary Care Provider] - Disposition Disposition (needs filled in before D/C Order can be placed): Home, Self Care Charges/Coding Visit Charges Inpatient E&M: 85272 Disch Hosp
[2021-08-13 11:59] VITALS: BP 116/57; PULSE 81; RESP 16; TEMP 36.7; O2SAT 98
--- NOTE | 2021-08-13 13:30 | RAD_ITS ---
STUDY: X-RAY CHEST REASON FOR EXAM: Male, 30 years old. Chest tube removal TECHNIQUE: Single AP portable view of the chest. COMPARISON: Comparison is made with prior study done earlier today. FINDINGS: The small caliber left-sided chest tube has been removed. Stable small left apical pneumothorax. Small amount of subcutaneous emphysema overlying the left lateral chest wall. RAD/Chest 1 View (Portable) IMPRESSION: Stable small left apical pneumothorax. Electronically Signed: Shayne Martinez MD at 13:45 EST ,
== END 2021-08-13 14:25 | disposition home or self-care (01) | DRG 200 ==
LOC: ED 12:35 → PCU 12:56
PROVIDERS: Admitting Provider Internal Medicine; Emergency Provider Emergency Medicine; Visit Provider Internal Medicine
DX: J93.0 Spontaneous tension pneumothorax (principal); J98.11 Atelectasis; F17.210 Nicotine dependence, cigarettes, uncomplicated; Z82.49 Family history of ischemic heart disease and other diseases of the circulatory system
CPT/HCPCS: 32551; 36415; 71045; 71046; 80048; 83735; 84484; 85025; 85379; 93005; 99285; 99406; J7120; A4216; J2405

== ENCOUNTER 2021-09-06 08:05 | Outpatient (CLI) | payer BC, SELFPAY ==
--- NOTE | 2021-09-06 08:09 | CT_ITS ---
STUDY: CT CHEST WITHOUT CONTRAST REASON FOR EXAM: Male, 30 years old. Spontaneous pneumothorax. JUL 2021 RADIATION DOSAGE (If Supplied By Facility): CTDIvol = ( 9.01 ) mGy, DLP = ( 418.64 ) mGycm TECHNIQUE: Transaxial imaging was performed without the administration of intravenous contrast material. Multiplanar coronal and sagittal images were reformatted. Individualized dose optimization techniques were used for this CT. COMPARISON: None. FINDINGS: Small benign-appearing bilateral axillary lymph nodes. Blebs are seen in the lung apices bilaterally more prominent on the left side. The dominant bleb in the medial left apex measures 3.8 cm x 2.8 cm. There is no demonstrated pleural abnormality. Normal heart and pericardium. Normal mediastinum. Normal hilar regions. Normal unenhanced pulmonary arteries. Normal aorta arch and descending thoracic aorta. Normal osseous structures. There is no demonstrated abnormality of the visualized upper abdomen. CT/Chest without Contrast IMPRESSION: Blebs are seen in both lung apices more prominent on the left side. The largest measures 3.8 sinus by 2.8 cm. Electronically Signed: Shayne Martinez MD at 8:41 EDT ,
== END 2021-09-06 23:59 | disposition home or self-care (01) ==
LOC: CT 08:07
PROVIDERS: Referring Provider Nurse Practitioner Acute Care; Visit Provider Nurse Practitioner Acute Care
DX: J93.83 Other pneumothorax (principal)
CPT/HCPCS: 71250

== ENCOUNTER 2024-12-12 17:09 | Emergency (ER) | payer BC, SELFPAY ==
[2024-12-12 17:11] VITALS: BP 161/89; PULSE 107; RESP 16; TEMP 37.3; O2SAT 98; BMI 20.9
--- NOTE | 2024-12-12 19:09 | EKG12_ITS ---
Test Reason : GEN. ILLNESS Blood Pressure : */* mmHG Vent. Rate : 85 BPM Atrial Rate : 85 BPM P-R Int : 162 ms QRS Dur : 104 ms QT Int : 344 ms P-R-T Axes : 69 41 60 degrees QTcB Int : 409 ms Normal sinus rhythm RSR' or QR pattern in V1 suggests right ventricular conduction delay Borderline ECG Confirmed by JOSE ELIAS ORNELAS, MICHAEL ([id number]), editor at large YENNIFER AVENDANO ([id number]) on 12/13/2024 1:33:41 PM Referred By: SHAUN Confirmed By: MICHAEL MOCTEZUMA MD
[2024-12-12 19:10] VITALS: BP 139/96; PULSE 86; RESP 16; O2SAT 99
[2024-12-12 19:45] VITALS: TEMP 36.8
[2024-12-12] MEDS: Doxycycline 100 MG CAPSULE PO (21:18)
[2024-12-12 21:19] VITALS: BP 127/96; PULSE 87; RESP 16; TEMP 36.9; O2SAT 100
--- NOTE | 2024-12-12 21:27 | EX.ED.DYSGE1 ---
HPI History of Present Illness Chief Complaint: General Illness Narrative Narrative: Patient is a 33-year-old male with past medical history of kidney stones who presents to the emergency department with a chief complaint of rash near his groin. He states that he originally followed up with his urologist as he was concerned that this was related to the kidney stone that he currently has they advised him to go to urgent care which he went to there and they were concerned for Lyme disease therefore they sent him here to the emergency department to be further evaluated. Patient states that he is always outside and he has had ticks test him in the past but does not recall any tick being specifically attached to him and his groin region. Patient states that he had diffuse body aches and chills recently as well. Patient denies any injury or trauma. He states that he has been taking Advil for his diffuse bodyaches. PFSH [facility] Medical History Kidney stone Pneumothorax Tobacco abuse Home Medications ?Medication ?Instructions ?Recorded ?Last Taken ?Type doxycycline hyclate 100 mg capsule 100 mg PO BID 14 days #28 caps 12/12/24 Unknown Rx tamsulosin 0.4 mg capsule (Flomax) 0.4 mg PO DAILY 12/12/24 Unknown History Allergy/AdvReac Type Severity Reaction Status Date / Time Penicillins (PCN) Allergy Mild Rash Verified 12/12/24 17:11 Family History Mother Asthma Social History Smoking Status: Current every day smoker tobacco type: cigarettes Tobacco: How many years used: 15 Electronic Cigarette Use: not used second hand exposure: No alcohol intake: never substance use type: does not use ROS ROS ED ROS Narrative Constitutional: Complains of fever and chills noted above denies lightheadedness or dizziness Eyes: Denies change in vision double vision blurry vision Cardiovascular: Denies chest pain or palpitations Respiratory: Denies coughing wheezing shortness of breath Abdomen: Denies abdominal pain nausea vomit diarrhea : Denies any urinary symptoms Neurological: Denies any numbness, wheeze, tingling Musculoskeletal: Complains of diffuse bodyaches as noted above Skin: Complains of rash as noted above EXAM Physical Exam Narrative Exam Narrative: General: Patient was lying in bed rest comfortably did not appear to be acute distress Head: Atraumatic, normocephalic Eyes: PERRL bilaterally, EOMI by, no conjunctival injection noted Neck: Soft, supple, trachea midline Cardiovascular: Regular rate and rhythm no murmurs gallops rubs noted Respiratory: Clear to auscultation bilaterally no rales rhonchi or wheezes noted Abdomen: Soft, nondistended, nontender to palpation, Genitourinary: Patient does have rash noted along the left groin region no crepitus noted no concern for Isaias's gangrene, no urethral discharge noted Extremities: +5/5 strength noted in the bilateral upper and lower extremities, radial pulses +2/4 and about extremities, no pedal edema exam Neurological: Patient following commands knew that he was at [facility] years 2024 Skin: Warm, dry, intact, see genitourinary Const Vital Signs: 12/12/24 17:11 12/12/24 18:14 12/12/24 19:10 Temperature 99.2 F H Temperature Source Oral Pulse Rate 107 H 86 Respiratory Rate 16 16 Respiratory Effort Normal Non-Labored Respiratory Pattern Normal Blood Pressure 161/89 H 139/96 H Blood Pressure Mean 113 110 Pulse Ox 98 99 Oxygen Delivery Method Room Air Room Air 12/12/24 19:45 12/12/24 21:19 Temperature 98.2 F 98.4 F Temperature Source Oral Pulse Rate 87 Respiratory Rate 16 Respiratory Effort Respiratory Pattern Blood Pressure 127/96 H Blood Pressure Mean 106 Pulse Ox 100 Oxygen Delivery Method MDM MDM MDM Narrative Medical decision making narrative: Patient is a 33-year-old male who presented to the emergency department concern for rash and the Lyme disease. The patient will have Lyme titer performed here and sent out. Patient be given to first dose doxycycline. Prescription for doxycycline was sent to the pharmacy. He was advised to rotate Tylenol and ibuprofen [id number] for pain control. He was encouraged return with worsening symptoms or concerns he was referred to a doctor to follow-up on his Lyme titer with. He is agreeable with plan as well as significant other bedside all question concerns answered he was discharged home in stable condition. Discharge Plan Triage Chief Complaint: General Illness ED Provider: Mian Ayoub Dx/Rx/DC Orders Clinical Impression: Groin rash, Encounter for medical screening examination Prescriptions: New doxycycline hyclate 100 mg capsule 100 mg PO BID 14 Days Qty: 28 0RF No Action tamsulosin [Flomax] 0.4 mg capsule 0.4 mg PO DAILY Primary Care Provider: Care Physician,No Primary Referrals: Care Physician,No Primary [Primary Care Provider] - Randy Milan MD [Med Staff - Flooring Helper] - Activity Restrictions/Additional Instructions: Follow-up on the Lyme titer that was sent out with the doctor you referred to or call here in a few days to follow-up on this. Take the antibiotic that was sent to your pharmacy as prescribed. You are given your first dose here in the emergency department you can start your next dose tomorrow morning. Return with worsening symptoms or other concerns. Rotate Tylenol and ibuprofen [id number] when you do that she can take something every 3 hours with max dose Tylenol in 24 hours 4000 mg. Max dose of ibuprofen in 24 hours 3200 mg. Print Language: Israeli Disposition Disposition: Home, Self Care
[2024-12-14 13:08] LABS: Lyme Scn Total Ab w/Rflx Negative (Negative)
== END 2024-12-12 21:55 | disposition home or self-care (01) ==
PROVIDERS: Emergency Provider Emergency Medicine; Visit Provider Emergency Medicine
DX: R21 Rash and other nonspecific skin eruption (principal); F17.210 Nicotine dependence, cigarettes, uncomplicated
CPT/HCPCS: 86618; 93005; 99282